=== PATIENT | male | born 1940 | race Two or more races ===

== ENCOUNTER 2021-11-12 07:45 | Outpatient (CLI) | payer OTHER | END 2021-11-12 07:46 | disposition home or self-care (01) | LOC: NUCLEAR 07:45 | PROVIDERS: ATTEND Urology | DX: R07.9 Chest pain, unspecified (principal) ==

== ENCOUNTER 2021-11-29 12:57 | Outpatient (CLI) | payer OTHER | END 2021-11-29 13:04 | disposition home or self-care (01) | LOC: NUCLEAR 12:57 | PROVIDERS: ATTEND Urology | DX: N28.89 Other specified disorders of kidney and ureter (principal) ==